=== PATIENT | male | born 1970 | race Caucasian/White ===

== ENCOUNTER 2016-11-11 07:18 | Observation (INO) | payer BC ==
[2016-11-11] VITALS (9 sets, daily range): BP systolic 115–152; BP diastolic 72–106; PULSE 60–109; RESP 16–20; TEMP 95.6–98.2; O2SAT 96–100
[~2016-11-11] VITALS: Ht 170.2 cm; Wt 76.1 kg
[2016-11-11] MEDS ORDERED: COMPLERA PO (07:37)
[2016-11-11] MEDS ORDERED: IPRAAER INH (07:37)
[2016-11-11] MEDS ORDERED: LEVOFLOXACIN 500 MG PREMIX 100 ML - nephrostomy tube insertion or exchange IV SCH (07:45)
[2016-11-11] MEDS ORDERED: SODIUM CHLORIDE 0.9% 1000 ML IV SCH (07:45)
[2016-11-11 08:09] LABS: AUTOMATED NEUTROPHIL # 2.9 TH/MM3 (1.8-7.7); BASOPHIL # 0.1 TH/MM3 (0-0.2); EOSINOPHIL # 0.4 TH/MM3 (0-0.4); EOSINOPHIL % 5.3 % (0.0-4.0); HEMATOCRIT 44.5 % (39.0-51.0); HEMO FLAGS DIFF FINAL; LYMPH % 39.4 % (9.0-44.0); LYMPHOCYTE # 2.6 TH/MM3 (1.0-4.8); MEAN CELL VOLUME 88.1 FL (80.0-100.0); MEAN CORPUSCULAR HEMOGLOBIN 30.3 PG (27.0-34.0); MEAN CORPUSCULAR HGB CONC 34.4 % (32.0-36.0); NEUT % 44.3 % (16.0-70.0); PLATELET COUNT 291 TH/MM3 (150-450); RED BLOOD COUNT 5.05 MIL/MM3 (4.50-5.90); RED CELL DISTRIBUTION WIDTH 12.6 % (11.6-17.2); WHITE BLOOD COUNT 6.6 TH/MM3 (4.0-11.0)
[2016-11-11 08:16] LABS: INTERNATIONAL NORMALIZED RATIO 0.9 RATIO; PROTHROMBIN TIME - PATIENT 10.2 SEC (9.8-11.6)
[2016-11-11 08:27] LABS: BICARBONATE 23.6 MEQ/L (21.0-32.0); POTASSIUM 3.7 MEQ/L (3.5-5.1)
[2016-11-11] MEDS ORDERED: fentaNYL CITRATE 250 MCG/5 ML AMP ONE ×2 (08:29→15:16)
[2016-11-11] MEDS ORDERED: MIDAZOLAM HCL 5 MG/5 ML VIAL ONE (08:29)
[2016-11-11] MEDS ORDERED: IOHEXOL 350 MG/ML 50 ML BTL (for RAD DIAG) ONE ×2 (10:09→13:51)
--- NOTE | 2016-11-11 10:09 | PD.RAD ---
Post Procedure Progress Note Pre Procedure Diagnosis: (1) Obstructive uropathy (2) Left nephrolithiasis Post Procedure Diagnosis: (1) Obstructive uropathy (2) Left nephrolithiasis Procedure Date: Nov 11, 2016 Supervising Radiologist: Micheal Tam Proceduralist/Assist: RT Parveen(R) Anesthesia: Local, Conscious Sedation Plan of Activity Patient to Unit: ROP[facility] Patient Condition: Good See PACS Report for procedural detail/treatment Drainage Procedure Procedure 1 Imaging Guidance: Fluoroscopy Side: Left Procedure Type: Ureteral Stent Procedure: Placement Lithuanian: 4 Findings: upper pole stone and mobile, non-obstructing renal pelvic stone Additional Detail: 4 tunisian .038 diagnostic catheters x2 placed from left kidney to bladder past 2 left kidney stones Plan OR this afternoon Micheal Tam MD Nov 11, 2016 10:09
[2016-11-11 10:40] LABS: APTT (PATIENT) 25.8 SEC (24.3-30.1)
[2016-11-11] MEDS ORDERED: HYDROmorphone HCL PF 1 MG/ML VIAL IV PUSH ONE (11:45)
[2016-11-11] MEDS ORDERED: ONDANSETRON HCL 4 MG/2 ML VIAL IV PUSH ONE (12:00)
[2016-11-11] MEDS ORDERED: PROPOFOL 200 MG/20 ML AMP IV ONE (12:00)
[2016-11-11] MEDS ORDERED: SODIUM CHLORIDE 0.9% IV SCH (12:30)
[2016-11-11] MEDS ORDERED: POVIDONE IODINE 5% (ANTISEPSIS KIT) 4 APPLICATIONS EACH NARE PRN (12:30)
[2016-11-11] MEDS ORDERED: INSULIN HUMAN REGULAR 1,000 UNITS/10 ML VIAL SQ PRN (12:30)
[2016-11-11] MEDS ORDERED: SODIUM CHLORID 0.9% 500 ML IV PRN (12:30)
[2016-11-11] MEDS ORDERED: CHLORHEXIDINE GLUCONATE 2 % 1 PACK (2 CLOTHS) TOPICAL PRN (12:30)
[2016-11-11] MEDS ORDERED: GENTAMICIN IV SCH (12:30)
[2016-11-11] MEDS ORDERED: ceFAZolin 2 GM PREMIX 50 ML IV SCH (12:30)
[2016-11-11] MEDS ORDERED: LACTATED RINGER'S 1000 ML IV PRN (12:30)
[2016-11-11] MEDS ORDERED: METOPROLOL TARTRATE 25 MG TAB PO PRN (12:30)
[2016-11-11] MEDS ORDERED: FUROSEMIDE 40 MG/4 ML VIAL ONE (12:45)
[2016-11-11] MEDS ORDERED: HYDROmorphone HCL PF 2 MG/ML VIAL ONE (12:57)
[2016-11-11] MEDS ORDERED: SUGAMMADEX SODIUM 200 MG/2 ML VIAL IV PUSH ONE ×2 (14:03)
--- NOTE | 2016-11-11 14:48 | RADRPT ---
EXAM DATE/TIME: 11/11/2016 13:58 [facility] COMPARISON: No previous studies available for comparison. INDICATIONS : Left side lithotripsy. Left side kidney stones. MEDICAL HISTORY : None. SURGICAL HISTORY : None. ENCOUNTER: Initial ACUITY: 1 day PAIN SCORE: Non-responsive. LOCATION: Left [place]. FINDINGS: 5 supine images of the abdomen were performed during patient's left-sided lithotripsy. There is a tru dewire in the left collecting system with 2 calcified left renal stones overlying the kidney. A sheat h was placed into the left collecting system. Guidewires are seen down into the urinary bladder. CONCLUSION: Status post left lithotripsy. Kendall Waite MD on November 11, 2016 at 14:43 Board Certified Radiologist. This report was verified electronically.
[2016-11-11] MEDS ORDERED: PANTOPRAZOLE SODIUM 40 MG VIAL IV PUSH SCH (15:00)
[2016-11-11] MEDS ORDERED: ONDANSETRON HCL 4 MG/2 ML VIAL IV PUSH PRN (15:00)
[2016-11-11] MEDS ORDERED: MORPHINE SULFATE 4 MG/ML INJ IV PUSH PRN (15:00)
[2016-11-11] MEDS ORDERED: DO NOT ADM ANY ANTICOAGULANT DRUGS PRN (15:00)
[2016-11-11] MEDS ORDERED: MIDAZOLAM HCL 2 MG/2 ML VIAL ONE (15:16)
--- NOTE | 2016-11-11 15:47 | RADRPT ---
EXAM DATE/TIME: 11/11/2016 09:01 [facility] COMPARISON: No previous studies available for comparison. INDICATIONS : MEDICAL HISTORY : History of HIV, left renal calculi, asthma. SURGICAL HISTORY : History of right tibial fracture repair, appendectomy, colonoscopy. ENCOUNTER: Initial ACUITY: 1 year PAIN SCORE: 0/10 FLUORO TIME: 8.8 minutes IMAGE SERIES: 1 SEDATION TIME: 50 minutes CONTRAST: 20 cc Omnipaque (iohexol) 350 MEDICATION(S): 1.) 4.5 mg midazolam (Versed) IV 2.) 250 mcg fentanyl (Sublimaze) IV DEVICE(S): 1.) Left 4Fr/65cm nephroureteral stent x 2 PROCEDURE : 1.percutaneous nephrostomy 2. ureteral stent placement with fluoroscopic guidance TECHNIQUE: The patient was placed prone on the fluoroscopy table. The back was prepped in sterile fashion. Full sterile technique was used, including cap, mask, sterile gloves and gown and a large sterile sheet. H and hygiene and 2% chlorhexidine and/or betadine/alcohol prep was utilized per protocol for cutaneous antisepsis. The skin and subcutaneous tissues were infiltrated with local anesthetic solution. Under direct ultrasound and fluoroscopic guidance, a 22 gauge Chiba needle was used to access the uri nary collecting system at an appropriate location for management of the patient's stones. A 0.018 inc h guidewire was introduced and manipulated into the proximal ureter. The AccuStick dilator was introd uced. The transparenchymal tract was tested over a Toughy-Sebastian adapter revealing direct access into the collecting system with no vascular opacification noted. The AccuStick sheath was then inserted. A 0.035 inch Glidewire was introduced through the sheath and directed into the ureter. The sheath was removed. A 4 Equ[place] Guinean catheter was used to assist with manipulation of the guidewire down the ureter an d into the urinary bladder under direct fluoroscopic guidance. Small volume contrast injection reveal ed satisfactory positioning in the bladder lumen. A FlexFinder guidewire was inserted and coiled into the bladder. A 5 Equ[place]inean vascular sheath was then inserted allowing placement of a second guidewire. A pair of 4 Equatorial [place]ine[place] Glidex Cobra catheters were then inserted and manipulated down the left ureter and coiled and the urinary bladder. The catheters were secured with silk suture, capped and labeled. The patient tolerated the procedure well and was taken to recovery in stable condition. Continues pul se oximetry and EKG monitoring with hemodynamic monitoring was performed throughout. Intravenous cons cious sedation was administered as outlined above. CONCLUSION: Uncomplicated nephroureteral stent catheter placements as above. Micheal Tam MD on November 11, 2016 at 15:25 Board Certified Radiologist. This report was verified electronically.
[2016-11-11] MEDS: ACETAMINOPHEN 1000 MG/100 ML VIAL IV SCH ×2 (15:53→21:37)
[2016-11-11] MEDS: SODIUM CHLOR 0.9% 1000 ML INJ 1,000 ML IV SCH (16:28)
[2016-11-11] MEDS: DOCUSATE SODIUM 100 MG CAP PO SCH (21:36)
[2016-11-11] MEDS: CIPROFLOXACIN 500 MG TAB PO SCH (21:36)
--- NOTE | 2016-11-11 23:07 | MP ---
cc: GEOVANNA MAKI MD DATE OF SURGERY 11/11/16 PREOPERATIVE DIAGNOSIS 1. Left renal calculi with stone burden greater than 2.0 cm. 2. HIV positive POSTOPERATIVE DIAGNOSIS 1. Left renal calculi with stone burden greater than 2.0 cm. 2. HIV positive PROCEDURE PERFORMED 1. Left percutaneous nephrolithotomy of stone burden less than 2.5 cm. 2. Removal of nephrostomy tube 3. Dilation of percutaneous track SURGEON Olive Maki MD ANESTHESIA General COMPLICATIONS None. PREOPERATIVE ANTIBIOTICS Ancef 1 gram IV Gentamicin 8 mg IV DRAINS 1. A 16-Yemeni Dumont catheter to gravity drainage. 2. A 6-Yemeni open-ended ureteral catheter in the left ureter ESTIMATED BLOOD LOSS Less than 25 mL SPECIMENS Left renal stone for chemical analysis DISPOSITION Stable to recovery INDICATIONS Patient is a 46-year-old male who was evaluated by ethics manager, Dr. Stark, for abdominal pain. The patient had CT abdomen and pelvis with contrast done which found a 1.5 cm renal pelvis stone in the left kidney as well as an 8 mm upper pole stone. Treatment options were discussed and he elected to proceed with produce nephrolithotomy. After risks, benefits and alternatives were explained to the patient, the patient elected to proceed. Informed consent was obtained. PROCEDURE IN DETAIL The patient earlier today underwent nephrostomy tube placement by interventional radiology performed a [place] in which access was gained through the upper pole. Following gaining access, the patient was then transferred up to the preoperative area. From there he was then taken back to the operating room where a proper time-out was performed. He was then placed under general anesthesia. He was then placed in prone position. All pressure points were padded. Preoperative antibiotics in the form of Ancef 1 gram as well as gentamicin ____ mg was given one hour prior to start of procedure. The patient was prepped, draped normal sterile and surgical fashion. Under guidance of fluoroscopy, I then passed a super stiff Amplatz wire down to his bladder. One of the ureteral catheters that was down in his bladder was then removed. The other ureteral catheter was removed. Using a dual-lumen ureteral catheter, I then passed over the indwelling wire into the left kidney under fluoroscopic guidance. A second wire was then passed through the in-dwelling ureteral catheter down to the bladder. The ureteral catheter was removed. The 0 skin incision was then extended to approximate 1.5 cm. At this time, using I then balloon dilated the percutaneous tract with 16 PCI for 3 minutes. Under guidance of fluoroscopy I then passed the 30-Yemeni working sheath over the inflated balloon into the left kidney. The balloon was deflated removed. Using the rigid nephroscope, I then inserted into the patient's kidney into the renal pelvis. At this time, there was minimal bleeding. The renal pelvis stone was easily identified. Using the cyber wand I then broke it up into a few separate fragments and this was removed with a rigid grasping forceps. I then slowly retracted the working sheath back under the guidance of as fluoroscopy until the other 8-mm stone was easily identified. This was grasped with the rigid grasping forceps and removed in its entirety. At this time, fluoroscopic image was taken which showed no evidence of any remaining stones. I then passed a 6-Yemeni open-ended ureteral catheter over the wire down into the bladder. This was confirmed by fluoroscopy. Both the safety wire and the working sheath were removed. The ureteral catheter was then secured in place with a 4-0 nylon. The skin incision was closed with interrupted 3-0 Vicryl leaving the ureteral catheter external drainage. This was then capped off. This concluded the procedure. The patient was extubated and sent to recovery in stable condition. He will be transferred to the floor for routine postop care. MD ALBA Reilly/ /3:06 PM /10:53 PM
[2016-11-12] VITALS: BP 119/72; PULSE 91; RESP 18; TEMP 97.3; O2SAT 99
[2016-11-12] MEDS: SODIUM CHLOR 0.9% 1000 ML INJ 1,000 ML IV SCH ×2 (01:51→11:02)
[2016-11-12 04:00] VITALS: BP 117/75; PULSE 86; RESP 18; TEMP 97.1; O2SAT 99
[2016-11-12] MEDS: ACETAMINOPHEN 1000 MG/100 ML VIAL IV SCH ×2 (05:39→07:42)
[2016-11-12] MEDS: DOCUSATE SODIUM 100 MG CAP PO SCH (07:42)
[2016-11-12] MEDS: CIPROFLOXACIN 500 MG TAB PO SCH (07:42)
[2016-11-12 08:00] VITALS: BP 121/62; PULSE 102; RESP 17; TEMP 96.2; O2SAT 100
[2016-11-12 09:15] VITALS: O2SAT 96
[2016-11-12 12:00] VITALS: BP 120/77; PULSE 103; RESP 17; TEMP 95.9; O2SAT 99
[2016-11-12] MEDS ORDERED: PERC5TAB12 PO (12:40)
[2016-11-12] MEDS ORDERED: DOCU1CAP39 PO (12:40)
[2016-11-12] MEDS ORDERED: CIPR-9 PO (12:40)
[2016-11-12] MEDS ORDERED: PANTOPRAZOLE SOD 40 MG DELAYED RELEASE TAB PO SCH (15:00)
[2016-11-12 16:00] VITALS: BP 122/75; PULSE 106; RESP 17; TEMP 96.7; O2SAT 98
[2016-11-12] MEDS ORDERED: ACETAMINOPHEN 325 MG TAB PO SCH (16:00)
== END 2016-11-12 17:07 | disposition home or self-care (01) ==
LOC: HROP 07:18 → HRIP 07:19 → HROP 17:14 → N07B 17:15
PROVIDERS: ADMIT Urology; ATTEND Urology
DX: N20.0 Calculus of kidney (principal); N13.9 Obstructive and reflux uropathy, unspecified; B20 Human immunodeficiency virus [HIV] disease; J45.40 Moderate persistent asthma, uncomplicated; Z85.46 Personal history of malignant neoplasm of prostate
CPT/HCPCS: 00860; 00862; 50081; 50395; 50694; 74000; 76000; 80048; 82370; 85025; 85610; 85730; 86850; 86900; 86901; 88300; 99152; 99153; C1726; C1769; C1887; C1894; C9113; G0378; J0131; J0690; J1170; J1580; J1940; J1956; J2250; J2405; J3010; J7030; J7120; Q9967